=== PATIENT | male | born 1985 | race African-American/Black ===

== ENCOUNTER 2017-01-13 00:58 | Emergency (ER) | payer MEDICAID, OTHER ==
[~2017-01-13] VITALS: Ht 182.9 cm; Wt 89.2 kg
[2017-01-13 00:59] VITALS: BP 146/96
[2017-01-13] MEDS ORDERED: LIDOCAINE 1%, 20ML ONE (01:29)
[2017-01-13] MEDS ORDERED: LIDOCAINE 1%, 10ML INFIL ONE (01:30)
[2017-01-13] MEDS ORDERED: BACITRACIN ZINC OINT 500U/GM, 0.9 GM ONE (01:57)
== END 2017-01-13 02:40 | disposition home or self-care (01) ==
LOC: ED 02:30
DX: S01.111A Laceration without foreign body of right eyelid and periocular area, initial encounter (principal); W22.8XXA Striking against or struck by other objects, initial encounter; Y93.61 Activity, american tackle football; Y92.321 Football field as the place of occurrence of the external cause; Y99.8 Other external cause status
CPT/HCPCS: 12013

== ENCOUNTER 2017-01-23 09:57 | Emergency (ER) | payer MEDICAID ==
[~2017-01-23] VITALS: Ht 182.9 cm; Wt 87.4 kg
[2017-01-23 09:59] VITALS: BP 150/90
== END 2017-01-23 10:58 | disposition home or self-care (01) ==
LOC: ED 10:52
DX: Z48.02 Encounter for removal of sutures (principal)
CPT/HCPCS: 99281

== ENCOUNTER 2021-01-10 12:42 | Emergency (ER) | payer MEDICAID, OTHER ==
[~2021-01-10] VITALS: Ht 185.4 cm; Wt 94.9 kg
[2021-01-10 12:45] VITALS: BP 171/102
--- NOTE | 2021-01-10 13:00 | NUR ---
ASSUMED CARE OF PT. HE REPORTS THAT DURING FOOTBALL, HE TURNED AND FELT PAIN. HE HAS BEEN ICING AND PLACING HEAT. FEELS THE SWELLING HAS GOTTEN WORSE AND IS DIFFICULT PUTTING WEIGHT ON IT, REPORTS TINGLING ON LEFT LATERAL BOTTOM SIDE OF FOOT. 2+ PULSE, TENDERNESS LOCATED BACKSIDE OF ANKLE.
--- NOTE | 2021-01-10 13:23 | NUR ---
BECCA GAR BEDSIDE NOW
--- NOTE | 2021-01-10 14:33 | NUR ---
PT RESTING LEG ELEVATED, NO NEEDS
--- NOTE | 2021-01-10 15:44 | NUR ---
PT CURRENTLY HAVING SPLINT PLACED.
--- NOTE | 2021-01-10 15:50 | NUR ---
TASK RN: DC EDUCATION PROVIDED, PT DEMONSTRATES UNDERSTANDING. PT AMBULATED WITH CRUTCHES TO DC WITH SO. SO TO TRANSPORT PT HOME.
== END 2021-01-10 15:57 | disposition home or self-care (01) ==
LOC: ED 15:51
DX: S86.012A Strain of left Achilles tendon, initial encounter (principal); M25.572 Pain in left ankle and joints of left foot; M79.89 Other specified soft tissue disorders; X58.XXXA Exposure to other specified factors, initial encounter; Y93.89 Activity, other specified; Y92.89 Other specified places as the place of occurrence of the external cause; Y99.8 Other external cause status
CPT/HCPCS: 29515; 99284